=== PATIENT | male | born 1935 | race African-American/Black ===

== ENCOUNTER 2017-08-01 22:15 | Inpatient (IN) | payer OTHER ==
[~2017-08-01] VITALS: Ht 175.3 cm; Wt 85.3 kg
[2017-08-01] MEDS ORDERED: SODIUM CHLORIDE 0.9% 1,000 ML IV ONE (23:07)
[2017-08-01] MEDS ORDERED: LEVOFLOXACIN 750MG PREMIX 150 ML IV ONE (23:15)
[2017-08-01] MEDS ORDERED: METRONIDAZOLE 500 MG PREMIX 100 ML IV ONE (23:15)
[2017-08-01 23:42] LABS: HEMATOCRIT. 37.7 % (42.0-52.0); HEMOGLOBIN. 12.4 g/dL (14.0-18.0); MEAN CORPUSCULAR HEMOGLOBIN 29.5 pg (28.0-32.0); MEAN CORPUSCULAR VOLUME 89.6 fL (80.0-94.0); MEAN PLATELET VOLUME 7.7 fl (7.4-10.4); PLATELET 222 x1000/uL (130-400)
[2017-08-01 23:56] LABS: CARBON DIOXIDE 25 mEq/L (21-32); CHLORIDE 107 mEq/L (98-107); TROPONIN I < 0.02 ng/mL (0.00-0.04)
[2017-08-02] VITALS (8 sets, daily range): BP systolic 135–163; BP diastolic 62–117
[2017-08-02 00:10] LABS: ATYPICAL LYMPHOCYTES 1; PLATELET ESTIMATE NORMAL
[2017-08-02] MEDS ORDERED: SODIUM CHLORIDE 0.9% 1,000 ML IV SCH (00:31)
[2017-08-02] MEDS ORDERED: MAGNESIUM 2 G PREMIX 50 ML IV NR (04:30)
[2017-08-02] MEDS ORDERED: PIPERACILLIN/TAZ 3.375G PREMIX 50 ML IV SCH (04:30)
[2017-08-02] MEDS ORDERED: DIPHENHYDRAMINE 50MG/ML VIAL IV PRN (04:30)
[2017-08-02] MEDS ORDERED: MAGNESIUM/ALUMINUM HYDROXIDE/SIMETHICONE 30ML UDC PO PRN (04:30)
[2017-08-02] MEDS ORDERED: MORPHINE SULFATE 2 MG/ML CPJ (NOT FOR IM USE) IV PRN (04:30)
[2017-08-02] MEDS ORDERED: KCL 20MEQ/100ML PREMIX 100 ML IV ONE (04:30)
[2017-08-02] MEDS ORDERED: IPRATROPIUM/ALBUTEROL 0.5-3(2.5)MG/3ML NEB INH PRN (04:30)
[2017-08-02] MEDS ORDERED: CLONIDINE 0.1MG TABLET PO PRN (04:30)
[2017-08-02] MEDS ORDERED: ONDANSETRON HCL 4MG/2ML VIAL IV PRN (04:30)
[2017-08-02] MEDS: SODIUM CHLORIDE 0.9% 1,000 ML IV SCH ×3 (06:40→17:01)
[2017-08-02] MEDS: ACETAMINOPHEN 325MG TABLET PO PRN ×2 (06:51→17:06)
[2017-08-02] MEDS: PIPERACILLIN/TAZ 2.25G PREMIX 50 ML IV SCH ×3 (08:00→17:00)
[2017-08-02] MEDS ORDERED: METR500T4 PO (08:17)
[2017-08-02] MEDS ORDERED: ASPI-1159 PO (08:17)
[2017-08-02] MEDS ORDERED: GABA-529 PO (08:17)
[2017-08-02] MEDS ORDERED: AMLO5TAB4 PO (08:17)
[2017-08-02] MEDS ORDERED: KDUR10 PO (08:17)
[2017-08-02] MEDS ORDERED: CIPR-213 PO (08:17)
[2017-08-02] MEDS ORDERED: CHLO25TA27 PO (08:18)
[2017-08-02] MEDS: KCL 10MEQ/50ML PREMIX 50 ML IV SCH ×2 (08:53→10:03)
[2017-08-02] MEDS ORDERED: AMLODIPINE 5MG TABLET PO SCH ×2 (09:00→17:00)
[2017-08-02] MEDS ORDERED: POTASSIUM CHLORIDE 20MEQ TABLET SR PO NR (10:15)
[2017-08-02] MEDS ORDERED: DIATR MEGLU/DIATRIZOATE SOLN 120ML ONE (12:00)
== END 2017-08-02 23:00 | disposition short-term general hospital (02) | DRG 392 ==
LOC: ER 22:37 → 5EST 08-02 00:33 → EDBEDREQ 08-02 00:36 → EDBEDREQTM 08-02 00:36 → ENRESERV 08-02 03:31
PROVIDERS: ADMIT Internal Medicine; ATTEND Internal Medicine
DX: K57.32 Diverticulitis of large intestine without perforation or abscess without bleeding (principal); N17.9 Acute kidney failure, unspecified; E87.6 Hypokalemia; N18.9 Chronic kidney disease, unspecified; N28.1 Cyst of kidney, acquired; I12.9 Hypertensive chronic kidney disease with stage 1 through stage 4 chronic kidney disease, or unspecified chronic kidney disease; M88.9 Osteitis deformans of unspecified bone; N40.0 Benign prostatic hyperplasia without lower urinary tract symptoms; Z82.49 Family history of ischemic heart disease and other diseases of the circulatory system; Z87.891 Personal history of nicotine dependence
CPT/HCPCS: 36415; 71010; 74176; 80053; 83605; 83735; 84484; 85025; 87040; 87493; 93005; 96365; 96366; 96367; 99285; J1956; J2543; J3475; J3480; J3490; J7030; Q9963

== ENCOUNTER 2019-09-11 21:51 | Emergency (ER) | payer OTHER ==
[~2019-09-11] VITALS: Ht 177.8 cm; Wt 82.0 kg
[~2019-09-11 21:51] MED LIST: AMLO5TAB4 PO; ASPI-1393 PO; CHLO25TA27 PO; CIPR-213 PO; GABA-529 PO; KDUR10 PO; METR-167 PO
[2019-09-11] MEDS ORDERED: METOCLOPRAMIDE HCL 10MG/2ML VIAL IV ONE (22:30)
[2019-09-11] MEDS ORDERED: ACETAMINOPHEN 325MG TABLET PO ONE (22:30)
[2019-09-12 00:56] LABS: BASOPHILS % 0.3 % (0.0-2.0); EOSINOPHILS % 0.1 % (0.0-5.0); HEMATOCRIT. 51.6 % (42.0-52.0); MEAN CORPUSCULAR HEMOGLOBIN 29.8 pg (28.0-32.0); MEAN CORPUSCULAR VOLUME 90.1 fL (80.0-94.0); MEAN PLATELET VOLUME 7.8 fl (7.4-10.4); MONOCYTES % 9.9 % (2.0-8.0); NEUTROPHILS % 77.7 % (40.0-76.0); PLATELET 235 x1000/uL (130-400); RED BLOOD CELL COUNT 5.72 mill/uL (4.7-6.1); RED CELL DISTRIBUTION WIDTH 15.4 % (11.6-14.6)
[2019-09-12] MEDS ORDERED: IOHEXOL-300 100 ML BOTTLE ONE (00:59)
[2019-09-12 01:01] LABS: CHLORIDE 108 mEq/L (98-107)
[2019-09-12] MEDS ORDERED: SODIUM CHLORIDE 0.9% 1,000 ML IV ONE (02:00)
[2019-09-12 02:27] LABS: CLARITY URINE CLEAR (CLEAR); COLOR URINE YELLOW (YELLOW); KETONES URINE TRACE (NEGATIVE); LEUKOCYTE ESTERASE URINE NEGATIVE (NEGATIVE); NITRITE URINE NEGATIVE (NEGATIVE); OCCULT BLOOD URINE NEGATIVE (NEGATIVE); PROTEIN URINE 1+ (NEGATIVE); UROBILINOGEN URINE 0.2 E.U./dL (0.2-1.0)
[2019-09-12 04:30] VITALS: BP 130/76
== END 2019-09-12 04:30 | disposition short-term general hospital (02) ==
LOC: ER 21:58
DX: S09.8XXA Other specified injuries of head, initial encounter (principal); R55 Syncope and collapse; I12.0 Hypertensive chronic kidney disease with stage 5 chronic kidney disease or end stage renal disease; E11.22 Type 2 diabetes mellitus with diabetic chronic kidney disease; N18.6 End stage renal disease; Z86.73 Personal history of transient ischemic attack (TIA), and cerebral infarction without residual deficits; W18.39XA Other fall on same level, initial encounter; Y93.89 Activity, other specified; Y92.89 Other specified places as the place of occurrence of the external cause; Y99.8 Other external cause status
CPT/HCPCS: 36415; 70450; 71045; 72125; 74177; 80048; 80053; 81003; 82962; 83690; 83880; 84484; 85025; 93005; 96361; 96374; 99285; J2765; J7030; Q9967

== ENCOUNTER 2024-01-10 23:41 | Emergency (ER) | payer OTHER ==
[~2024-01-10] VITALS: Ht 160 cm; Wt 82.0 kg
[~2024-01-10 23:41] MED LIST changes: +ABIR250T PO; +AMLO10TA80 PO; -AMLO5TAB4 PO; -ASPI-1393 PO; +ASPI-1497 PO; +ATOR40TA70 PO; -CIPR-213 PO; +DULO40CA2 PO; -KDUR10 PO; +MED4 MT; -METR-167 PO; +PANT40TA51 PO; +POTA-204 PO; +PRED5TAB48 PO; +SEVE800T8 PO
[2024-01-10 23:46] VITALS: O2SAT 96
[2024-01-11] MEDS: IPRATROPIUM BROMIDE (0.02%) 0.5MG/2.5ML NEB HHN STA (00:20)
[2024-01-11 00:21] VITALS: PULSE 103; RESP 22
[2024-01-11] MEDS: ALBUTEROL (0.083%) 2.5MG/3ML NEB HHN STA (00:21)
[2024-01-11 00:47] LABS: HEMATOCRIT. 22.6 % (42.0-52.0); HEMOGLOBIN. 7.4 g/dL (14.0-18.0); MEAN CORPUSCULAR HEMOGLOBIN 36.4 pg (28.0-32.0); MEAN CORPUSCULAR HGB CONC 32.6 g/dL (31.0-37.0); MEAN CORPUSCULAR VOLUME 111.7 fL (80.0-94.0); MEAN PLATELET VOLUME 9.4 fl (7.4-10.4); PLATELET 121 x1000/uL (130-400); RED BLOOD CELL COUNT 2.02 mill/uL (4.7-6.1); RED CELL DISTRIBUTION WIDTH 18.5 % (11.6-14.6); WHITE BLOOD COUNT 14.8 x1000/uL (4.5-11.0)
[2024-01-11 00:49] LABS: DIFFERENTIAL COMMENT 1
[2024-01-11 01:03] LABS: ALANINE AMINOTRANSFERASE 25 IU/L (10-49); ALBUMIN 3.3 g/dL (3.2-4.8); ASPARTATE AMINOTRANSFERASE 35 IU/L (<34); BILIRUBIN TOTAL 1.1 mg/dL (0.1-1.0); CALCIUM 8.6 mg/dL (8.7-10.4); CARBON DIOXIDE 25 mEq/L (21-32); CHLORIDE 107 mEq/L (98-107); CREATININE 2.1 mg/dL (0.6-1.3); GLUCOSE 224 mg/dL (70-105); POTASSIUM 2.9 mEq/L (3.5-5.1); PROTEIN TOTAL 5.6 g/dL (6.0-8.3); SODIUM 145 mEq/L (136-145); UREA NITROGEN BLOOD 33 mg/dL (9-23)
[2024-01-11] MEDS: SODIUM CHLORIDE 0.9% 1,000 ML IV NR (01:10)
[2024-01-11 01:13] LABS: ETHANOL BLOOD < 10 mg/dL (<10); TROPONIN I HIGH SENSITIVITY 118 ng/L (3.0-53)
[2024-01-11 01:36] LABS: PLATELET ESTIMATE NORMAL
[2024-01-11] MEDS ORDERED: SODIUM CHLORIDE 0.9% 1,000 ML IV NR (01:45)
[2024-01-11] MEDS: VANCOMYCIN 1G PREMIX 200 ML IV NR (02:35)
[2024-01-11] MEDS: ASPIRIN 325MG EC TABLET PO NR (02:35)
[2024-01-11] MEDS: KCL 20MEQ/100ML PREMIX 100 ML IV NR (02:35)
[2024-01-11 02:45] LABS: PARTIAL THROMBOPLASTIN TIME 24.4 sec (23.4-31.0); PROTHROMBIN TIME 11.3 sec (9.6-11.0)
[2024-01-11 03:24] LABS: TROPONIN I HIGH SENSITIVITY 118 ng/L (3.0-53)
[2024-01-11 04:04] LABS: CLARITY URINE CLEAR (CLEAR); COLOR URINE YELLOW (YELLOW); GLUCOSE URINE 2+ (NEGATIVE); KETONES URINE NEGATIVE (NEGATIVE); LEUKOCYTE ESTERASE URINE NEGATIVE (NEGATIVE); NITRITE URINE NEGATIVE (NEGATIVE); OCCULT BLOOD URINE 1+ (NEGATIVE); PH URINE 5.5 (4.5-8.0); PROTEIN URINE 1+ (NEGATIVE); SPECIFIC GRAVITY URINE 1.015 (1.005-1.030); UROBILINOGEN URINE 0.2 E.U./dL (0.2-1.0)
[2024-01-11 04:08] LABS: *AMPHETAMINES SCREEN URINE NEGATIVE (NEGATIVE); *BARBITURATES SCREEN URINE NEGATIVE (NEGATIVE); *BENZODIAZEPINES SCREEN URINE NEGATIVE (NEGATIVE); *COCAINE SCREEN URINE NEGATIVE (NEGATIVE); CANNABINOID URINE SCREEN NEGATIVE (NEGATIVE); ECSTASY MDMA SCREEN URINE NEGATIVE (NEGATIVE); METHADONE URINE SCREEN Neg (NEGATIVE); OPIATES URINE SCREEN NEGATIVE (NEGATIVE); PHENCYCLIDINE URINE SCREEN NEGATIVE (NEGATIVE)
[2024-01-11 04:26] LABS: BACTERIA URINE TRACE; RBC URINE 0-2 /hpf (0-2); SQUAMOUS EPITHELIAL CELL URINE FEW /lpf (RARE/1+); WBC URINE NONE SEEN /hpf (0-2); YEAST URINE 1+
[2024-01-11] MEDS: MORPHINE SULFATE 4 MG/ML CPJ (NOT FOR IM USE) IV ONE (05:57)
[2024-01-11 07:11] VITALS: BP 136/83; PULSE 104; RESP 22; TEMP 98.7
[2024-01-11] MEDS ORDERED: PIPERACILLIN/TAZO 3.375G/50ML 50 ML IV NR (09:00)
== END 2024-01-11 07:22 | disposition short-term general hospital (02) ==
LOC: ER 01-11 00:01
DX: A41.9 Sepsis, unspecified organism (principal); R79.89 Other specified abnormal findings of blood chemistry; D64.9 Anemia, unspecified; E87.6 Hypokalemia; I10 Essential (primary) hypertension; F12.10 Cannabis abuse, uncomplicated; Z20.822 Contact with and (suspected) exposure to COVID-19
CPT/HCPCS: 71045; 94640; 93005; 80053; 80305; 81003; 80320; 83880; 83605; 83690; 85025; 85610; 85730; 87040; 84484; 87804 ×2; 36415; 84145; 96361; 96365; 96375; 99291; 87426; J3480; J3370; J2270; G0480